=== PATIENT | male | born 1965 | race Caucasian/White ===

== ENCOUNTER 2018-05-13 18:53 | Inpatient (IN) | payer MEDICAID ==
[~2018-05-13] VITALS: Ht 170.2 cm; Wt 90.3 kg
[2018-05-13 19:00] VITALS: BP 164/85
--- NOTE | 2018-05-13 21:59 | NUR ---
PT TO ER BED 1
--- NOTE | 2018-05-13 22:00 | NUR ---
GLADIS SHANNONER WITH C/O SOB, COUGH X 5 DAYS, MID ABDOMINAL PAIN/CELLULITIS. ADMITTED HAS BEEN USING HEROIN. NO ACCESSORY MUSCLE USE, SPEAKS FULL SENCTENSES, CLEAR BL BS, SPO2 99% ON ROOM AIR. PT STATES TO LAST USED HEROIN YESTURDAY AROUND NOON. LOWER PITTING EDEMA IN BILATERAL EXTREMITIES. DENIES N/V/D; SKIN IS PINK/WARM/DRY; AAOX4 WITH EVEN AND STEADY GAIT; PATIENT STATES PAIN OF 0/10 AT THIS TIME; VSS; PATIENT POSITIONED FOR COMFORT; HOB ELEVATED; BEDRAILS UP X2; BED DOWN. ER MD MADE AWARE OF PT STATUS. HX; DENIES RX; DENIES
[2018-05-13] MEDS ORDERED: NACL 0.9% 1,000 ML IV SCH (22:14)
--- NOTE | 2018-05-13 22:25 | NUR ---
LAB AT BEDSIDE.
[2018-05-13] MEDS ORDERED: DEXT 5% / NACL 0.45% 1,000 ML IV SCH (22:39)
[2018-05-13] MEDS ORDERED: ONDANSETRON 4 MG/2 ML VIAL IM/IVP PRN (22:40)
[2018-05-13] MEDS ORDERED: HYDROcodone/APAP 5/325 MG 1 TAB TAB PO PRN (22:40)
[2018-05-13] MEDS ORDERED: ZOLPIDEM 5 MG TAB PO PRN (22:40)
[2018-05-13] MEDS ORDERED: DOCUSATE SODIUM 100 MG GELCAP PO PRN (22:40)
[2018-05-13] MEDS ORDERED: ACETAMINOPHEN 325 MG TAB PO PRN (22:40)
[2018-05-13] MEDS ORDERED: CLINDAMYCIN 900 MG in DEXTROSE 5% 100 ML IV ONE (22:45)
[2018-05-13 22:57] LABS: BASOPHILS # (AUTO) 0.1 K/uL (0.00-0.22); BASOPHILS % (AUTO) 1.1 % (0.0-2.0); EOSINOPHILS # (AUTO) 0.2 K/uL (0-0.4); EOSINOPHILS % (AUTO) 3.4 % (0.0-4.0); HEMATOCRIT 35.4 % (36-52); HEMOGLOBIN 11.5 g/dL (12.0-18.0); LYMPHOCYTES # (AUTO) 1.8 K/uL (2.0-11.5); LYMPHOCYTES % (AUTO) 26.2 % (20.5-51.1); MEAN CORPUSCULAR HEMOGLOBIN 30 pg (27-31); MEAN CORPUSCULAR HGB CONC 33 g/dL (33-37); MEAN CORPUSCULAR VOLUME 91.5 fL (80-94); MONOCYTES # (AUTO) 0.9 K/uL (0.8-1.0); MONOCYTES % (AUTO) 12.9 % (1.7-9.3); NEUTROPHILS # (AUTO) 3.9 K/uL (1.8-7.7); NEUTROPHILS % (AUTO) 56.4 % (42.2-75.2); PLATELET COUNT (AUTO) 100 K/uL (140-450); RED BLOOD CELL COUNT(AUTO) 3.87 MIL/uL (4.20-6.10); RED CELL DISTRIBUTION WIDTH 15.9 % (11.6-13.7)
[2018-05-13 23:11] LABS: ANION GAP 9.8 (8-16); CARBON DIOXIDE 28.7 mmol/L (21-32); CREATININE 0.7 mg/dL (0.7-1.3); POTASSIUM 3.5 mmol/L (3.5-5.1)
[2018-05-13 23:17] LABS: ALBUMIN 2.5 g/dL (3.4-5.0); TOTAL BILIRUBIN 2.5 mg/dL (0.0-1.0)
[2018-05-13] MEDS ORDERED: CLINDAMYCIN 900 MG/6 ML VIAL IV ONE (23:19)
[2018-05-13 23:24] LABS: PROTHROMBIN TIME 14.9 secs (10.8-13.4)
[2018-05-13 23:27] LABS: MAGNESIUM 1.5 mg/dL (1.8-2.4); PHOSPHORUS 3.2 mg/dL (2.5-4.9); THYROID STIMULATING HORMONE 1.71 uIU/mL (0.34-3.74)
[2018-05-13 23:55] VITALS: BP 130/74
--- NOTE | 2018-05-13 23:55 | NUR ---
Admited to Tele. Will go to room 111A. Belongings list completed. Report to Zana HOLLAND.
--- NOTE | 2018-05-13 23:55 | NUR ---
REPORT RECEIVED FROM ED NURSE AT BEDSIDE. PT IN STABLE CONDITION. AAOX4. INTRODUCED SELF TO PT. BOARD UPDATED. NO COMPLAINTS OF PAIN. NO SOB. AFEBRILE. IV SITE L WRIST 22G RUNNING D5 1/2NS@40ML/HR PATENT AND INTACT. SKIN WARM, DRY, AND INTACT BUT HAS MULTIPLE ABSCESSES ON THE BILATERAL LOWER ABDOMEN. PICTURES TAKEN AND IN CHART. BED LOCKED IN LOW POSITION. CALL PLUMMER WITHIN REACH. SAFETY PRECAUTIONS IN PLACE. ALL NEEDS MET AT THIS TIME.
[2018-05-14] VITALS: BP 130/70
[2018-05-14] MEDS ORDERED: FUROSEMIDE 40 MG/4 ML VIAL IVP ONE (00:40)
[2018-05-14] MEDS ORDERED: MAG SULF 2000 MG/WATER PREMIX 50 ML IV ONE (00:45)
--- NOTE | 2018-05-14 00:56 | NUR ---
LASIX GIVEN IVP. PT TOLERATED WELL. Addendum: 05/14/18 at 0120 by Zana Dunaway RN MAG KENNEDY AND RUNNING.
--- NOTE | 2018-05-14 02:20 | NUR ---
PT SLEEPING COMFORTABLY IN BED. NO S/S OF DISTRESS NOTED. DENIES PAIN. NO SOB. AFEBRILE. WILL CONTINUE TO MONITOR.
[2018-05-14 03:05] LABS: BARBITURATE, URINE NEGATIVE ng/ml (NEG <=200); BENZODIAZEPINE, URINE NEGATIVE ng/mL (NEG <=200); CANNABINOID, URINE NEGATIVE ng/mL (NEG <=50); COCAINE, URINE NEGATIVE ng/mL (NEG <=300); OPIATE, URINE POSITIVE ng/mL (NEG <=2000); PHENCYCLIDINE SCREEN,URINE NEGATIVE ng/mL (NEG <=25)
[2018-05-14] MEDS ORDERED: ALBUTEROL SULFATE/IPRATROPIU 3 ML SOL IH PRN (03:30)
[2018-05-14 03:46] LABS: APPEARANCE,URINE CLEAR (CLEAR); BILIRUBIN,URINE NEGATIVE (NEGATIVE); BLOOD, URINE NEGATIVE (NEGATIVE); COLOR,URINE YELLOW (YELLOW); LEUKOCYTE ESTERASE ,URINE NEGATIVE (NEGATIVE); NITRITE, URINE NEGATIVE (NEGATIVE); PH,URINE 6.5 (5.0-9.0); UGLUCOSE NEGATIVE (NEGATIVE)
[2018-05-14 04:00] VITALS: BP 107/63
[2018-05-14] MEDS: NACL 0.9% 1,000 ML IV SCH (04:15)
--- NOTE | 2018-05-14 04:17 | NUR ---
CLEOCIN HUNG AND RUNNING. PT TOLERATING WELL.
[2018-05-14] MEDS ORDERED: CLINDAMYCIN 600 MG/4 ML VIAL ONE (04:18)
[2018-05-14] MEDS ORDERED: CLINDAMYCIN 600 MG in DEXTROSE 5% 50 ML IV SCH (05:00)
[2018-05-14 06:27] LABS: BASOPHILS # (AUTO) 0.1 K/uL (0.00-0.22); BASOPHILS % (AUTO) 1.1 % (0.0-2.0); EOSINOPHILS # (AUTO) 0.3 K/uL (0-0.4); EOSINOPHILS % (AUTO) 5.4 % (0.0-4.0); HEMOGLOBIN 10.7 g/dL (12.0-18.0); LYMPHOCYTES # (AUTO) 1.5 K/uL (2.0-11.5); LYMPHOCYTES % (AUTO) 28.1 % (20.5-51.1); MEAN CORPUSCULAR HEMOGLOBIN 30 pg (27-31); MEAN CORPUSCULAR HGB CONC 33 g/dL (33-37); MONOCYTES # (AUTO) 0.8 K/uL (0.8-1.0); NEUTROPHILS # (AUTO) 2.6 K/uL (1.8-7.7); NEUTROPHILS % (AUTO) 49.4 % (42.2-75.2); PLATELET COUNT (AUTO) 85 K/uL (140-450); RED BLOOD CELL COUNT(AUTO) 3.51 MIL/uL (4.20-6.10); RED CELL DISTRIBUTION WIDTH 15.9 % (11.6-13.7); WHITE BLOOD COUNT (AUTO) 5.3 K/uL (4.8-10.8)
[2018-05-14 06:43] LABS: CREATININE 0.7 mg/dL (0.7-1.3)
[2018-05-14 06:49] LABS: ANION GAP 6.7 (8-16); CARBON DIOXIDE 30.5 mmol/L (21-32); MAGNESIUM 1.8 mg/dL (1.8-2.4); PHOSPHORUS 3.1 mg/dL (2.5-4.9); POTASSIUM 3.2 mmol/L (3.5-5.1)
[2018-05-14 06:53] LABS: CHOL/HDL RATIO 3.3 (1-4.5)
--- NOTE | 2018-05-14 07:05 | NUR ---
REPORT GIVEN TO AM NURSE AT BEDSIDE. PT IN STABLE CONDITION.
--- NOTE | 2018-05-14 07:10 | NUR ---
REPORT RECIEVED FROM YARN COMBER NURSE, PT SLEEPING QUIETLY IN NAD, AROUSES EASILY, RESP EVEN UNALBORED ON RA, SKIN WARM DRY COLOR WNL, POC REVIEWED, ALL SAFETY MEASURES IN PLACE, NO IMMEDIATE NEEDS AT THIS TIME, WILL CONTINUE TO MONITOR.
[2018-05-14] MEDS ORDERED: POTASSIUM CHLORIDE 10 MEQ TABER PO SCH (07:22)
[2018-05-14] MEDS: LORazepam 2 MG/ML VIAL IM/IVP PRN (07:47)
--- NOTE | 2018-05-14 07:50 | NUR ---
PT STATES "I'M WITHDRAWING" STATES FEELS ANXIOUS, ATIVAN GIVEN PER PRN ORDER.
[2018-05-14 08:00] VITALS: BP 113/71
--- NOTE | 2018-05-14 08:12 | NUR ---
PATIENT HAS BEEN SCREENED AND CATEGORIZED MODERATE NUTRITION RISK. PATIENT WILL BE SEEN WITHIN 3-5 DAYS OF ADMISSION. 05/16/18[address]
[2018-05-14] MEDS ORDERED: VANCOMYCIN PER PHARMACY MC PRN (09:10)
[2018-05-14] MEDS: VANCOMYCIN 1GM/DEXT 5% PREMIX 200 ML IV SCH ×2 (10:30→17:54)
--- NOTE | 2018-05-14 10:32 | NUR ---
SCHEDULED VANCO STARTED, IV SITE WNL, PT SLEEPING QUIETLY IN NNAD
--- NOTE | 2018-05-14 11:55 | NUR ---
PT SLEEPING QUIETLY IN NAD, AROUSES EASILY BY VOICE, DENIES PAIN OR DISCOMFORT, VITALS STABLE, SITTING UP NOW REQUESTING FOR FOOD, LUNCH TRAY ON THE FLOOR NOW, WILL PROVIDE LUNCH. DENIES OTHER NEEDS AT THIS TIME
[2018-05-14 12:00] VITALS: BP 133/78
[2018-05-14] MEDS: CLINDAMYCIN PHOS 600MG/D5W PM 50 ML IV SCH ×2 (12:52→21:56)
--- NOTE | 2018-05-14 12:55 | NUR ---
FLU SWAB COLLECTED.
--- NOTE | 2018-05-14 14:22 | NUR ---
DAUGHTER AT BEDSIDE, DR HERNÁNDEZ AT BEDSIDE, POC DISCUSSED. PT DENIES PAIN OR DISCOMFORT.
[2018-05-14 16:00] VITALS: BP 112/61
--- NOTE | 2018-05-14 16:15 | NUR ---
VITALS STABLE, DENIES PAIN OR DISCOMFORT, CALL BELLWITHIN REACH SIDE RAILSUP , WILL CONTINUE TO MONTIOR.
--- NOTE | 2018-05-14 18:01 | NUR ---
PT SITTING UP TALKING WITH FAMILY, DENIES PAIN OR DISCOMFORT, RESP EVEN UNLABORED, IVF INFUSING WELL, SITE WNL, ANTIBIOTIC STARTED, JUST FINISHED DINNER, KELLY 50% OF DINNER, DENIES ANY IMMEDIATE NEEDS, WILL CONTINUE TO MONTIOR.
--- NOTE | 2018-05-14 19:21 | NUR ---
REPORT GIVEN TO SALES AND CATERING COORDINATOR NURSE, PT IN STABLE CONDITION.
[2018-05-14 20:05] VITALS: BP 104/62
--- NOTE | 2018-05-14 20:10 | NUR ---
SEEN PT ASLEEP BUT EASILY AROUSABLE. INITIAL ASSESSMENT DONE. PT'S ABDOMINAL MARKINGS FROM INJECTION SITES REMAINS UNCHANGED. VITAL SIGNS CHECKED. TEMP=99.1. PT ENCOURAGED TO JUST USE THE TOP SHEET FOR NOW TO COOL DOWN HIS BODY. PT VERBALIZED UNDERSTANDING. BLANKET REMOVED. PT ENCOURAGED TO KEEP HIS LEFT ARM STRAIGHT MUCH HE CAN SO HIS IV ATB WILL INFUSED CONTINUOUSLY. PT DENIES ANY PAIN. SAFETY REINFORCED. CALL LIGHT W/IN REACH.
--- NOTE | 2018-05-14 21:55 | NUR ---
SEEN PT AWAKE. PT ASKING FOR SNACKS. WILL GIVE SANDWICH. IV CLINDAMYCIN GIVEN ORDERED. TEACHINGS PROVIDE. PT VERBALIZED UNDERSTANDING. PT USED HIS URINAL. URINAL EMPTIED W/ 450ML CLEAR, YELLOW URINE. PT KEPT COMFORTABLE.
[2018-05-15] VITALS (7 sets, daily range): BP systolic 98–118; BP diastolic 48–73
--- NOTE | 2018-05-15 00:20 | NUR ---
SEEN PT ASLEEP BUT EASILY AROUSABLE. VITAL SIGNS CHECKED. PT DENIES ANY PAIN. SAFETY ENSURED. CALL LIGHT W/IN REACH.
--- NOTE | 2018-05-15 01:40 | NUR ---
SPOKE TO MD RESIDENT REGARDING AM LABS. HE SAID TO DRAW AM LABS SEPARATE FROM VANCO TROUGH @ 0900. WILL NOTIFY LAB.
[2018-05-15] MEDS: VANCOMYCIN 1GM/DEXT 5% PREMIX 200 ML IV SCH ×3 (02:50→18:11)
[2018-05-15] MEDS: NACL 0.9% 1,000 ML IV SCH (03:50)
--- NOTE | 2018-05-15 04:20 | NUR ---
SEEN PT AWAKE WATCHING SOMETHING IN HIS CELLPHONE. VITAL SIGNS CHECKED. PT DENIES ANY PAIN OR SHORTNESS OF BREATH. PT'S IV KEEPS BEEPING. INSTRUCTED PT TO KEEP THE LEFT HAND ELEVATED OVER THE PILLOW. PT VERBALIZED UNDERSTANDING. WILL CONTINUE TO MONITOR.
[2018-05-15] MEDS: CLINDAMYCIN PHOS 600MG/D5W PM 50 ML IV SCH ×3 (05:50→20:04)
--- NOTE | 2018-05-15 05:50 | NUR ---
SEEN PT AWAKE. IV ATB GIVEN ORDERED W/ TEACHINGS. PT ASKING FOR HIS WITHDRAWAL MEDICATION. ASKED IF ITS ATIVAN, PT SAID "YES". WILL MEDICATE ORDERED.
[2018-05-15] MEDS: LORazepam 2 MG/ML VIAL IM/IVP PRN ×2 (05:58→18:11)
[2018-05-15 06:20] LABS: HEPATITIS A ANTIBODY IGM Negative (Negative); HEPATITIS B SURFACE ANTIBODY Non Reactive (.); HEPATITIS B SURFACE ANTIGEN Negative (Negative)
--- NOTE | 2018-05-15 07:10 | NUR ---
SUJATHA CHARGE NURSE CALLED AND SAID PT'S COUGHING OUT BLOOD. SEEN PT AWAKE IN BED. [place] W/ BLOOD SEEN AT BEDSIDE. PT SAID "ITS NOT COUGHED OUT, ITS FROM SNEEZING." PT SAID HE HAD EPISODE OF IT YESTERDAY BUT REALLY SMALL AMOUNT FROM SNEEZING TOO. PT DENIES SOB. WILL ENDORSE TO DAYSHIFT NURSE.
--- NOTE | 2018-05-15 07:25 | NUR ---
Received report from pm nurse Goetz. Pt resting in bed, awake, verbally responsive, no signs of distress. Call light within reach.
[2018-05-15 07:28] LABS: BASOPHILS % (AUTO) 1.1 % (0.0-2.0); EOSINOPHILS # (AUTO) 0.1 K/uL (0-0.4); EOSINOPHILS % (AUTO) 3.3 % (0.0-4.0); HEMATOCRIT 33.9 % (36-52); HEMOGLOBIN 11.1 g/dL (12.0-18.0); LYMPHOCYTES # (AUTO) 1.1 K/uL (2.0-11.5); LYMPHOCYTES % (AUTO) 25.3 % (20.5-51.1); MEAN CORPUSCULAR HEMOGLOBIN 30 pg (27-31); MEAN CORPUSCULAR HGB CONC 33 g/dL (33-37); MEAN CORPUSCULAR VOLUME 91.4 fL (80-94); MONOCYTES # (AUTO) 0.5 K/uL (0.8-1.0); MONOCYTES % (AUTO) 11.7 % (1.7-9.3); NEUTROPHILS # (AUTO) 2.6 K/uL (1.8-7.7); NEUTROPHILS % (AUTO) 58.6 % (42.2-75.2); PLATELET COUNT (AUTO) 93 K/uL (140-450); RED BLOOD CELL COUNT(AUTO) 3.71 MIL/uL (4.20-6.10); WHITE BLOOD COUNT (AUTO) 4.4 K/uL (4.8-10.8)
[2018-05-15 07:37] LABS: ANION GAP 8.1 (8-16); CARBON DIOXIDE 24.7 mmol/L (21-32); CREATININE 0.8 mg/dL (0.7-1.3); POTASSIUM 3.8 mmol/L (3.5-5.1)
[2018-05-15 07:48] LABS: PHOSPHORUS 3.2 mg/dL (2.5-4.9)
[2018-05-15 08:24] LABS: MAGNESIUM 1.5 mg/dL (1.8-2.4)
[2018-05-15 08:48] LABS: FOLIC ACID 3.5 ng/mL (>3.0)
[2018-05-15] MEDS ORDERED: MAG SULF 2000 MG/WATER PREMIX 50 ML IV SCH (10:00)
--- NOTE | 2018-05-15 10:12 | NUR ---
Mg-rider initiated at this time. Pt resting in bed, aaox4, no c/o discomfort, no signs of distress. Call light within reach.
--- NOTE | 2018-05-15 10:42 | NUR ---
Spoke to Evel[facility] pharmacist. Confirmed Vanco trough level. Per pharmacist, cont current vancomycin dose.
--- NOTE | 2018-05-15 10:53 | NUR ---
Mg-rider held at this time. IV flushed with 10ml NS. Started Vancomycin infusion. Pt awake, verbally responsive, respirations even & nonlabored, no c.o discomfort. Call light within reach.
--- NOTE | 2018-05-15 12:50 | NUR ---
Noted anterior right upper thigh indurated lesion with redness & tenderness (1.5 x 1.5 cm with 0.5cm elevation). Per pt, he uses his right upper thigh to inject heroin. Dr Peterson notified.
--- NOTE | 2018-05-15 13:05 | NUR ---
Vancomycin completed. Initiated clindamycin IV. Pt sitting up in bed, no signs of distress, no c/o discomfort. Call light within reach.
--- NOTE | 2018-05-15 13:45 | NUR ---
Clindamycin completed. Resumed Mg-rider infusion @ 25ml/hr. Pt sitting up in bed, 2 visitors at bedside. Pt interacting appropriately. Call light within reach.
--- NOTE | 2018-05-15 18:11 | NUR ---
Lorazepam admin: Lorazepam given for c/o generalized anxiety. Pt noted to be slightly restless. Reassurance provided. Call light within reach.
--- NOTE | 2018-05-15 19:11 | NUR ---
Pt resting in bed at this time, no c/o discomfort, respirations even & nonlabored. Call light within reach.
--- NOTE | 2018-05-15 19:29 | NUR ---
Report given to pm nurse Zulema.
--- NOTE | 2018-05-15 19:30 | NUR ---
RECEIVED FROM AM RN IN BED AWAKE AND ALERT. ABLE TO VERBALIZE NEEDS WELL. NO SOB. DENIES PAIN AT THIS TIME.CALL LIGHT WITH IN REACH AND ENCOURAGED TO CALL FOR ANY HELP OR ANY PAIN HE MIGHT HAVE. TELEMETRY MONITORING. DX. OF ABSCESS AND DEHYDRATION.
--- NOTE | 2018-05-15 20:40 | NUR ---
PT. REQUESTED FOR SLEEPING PILL. MEDICATED WITH AMBIEN 5 MG. P.O. PT. ABLE TO VERBALIZE NEEDS WELL. ON TELEMETRY MONITORING. CALL LIGHT WITH IN REACH.
[2018-05-15 20:56] LABS: HEPATITIS B CORE AB TOTAL POSITIVE (NEGATIVE)
[2018-05-15] MEDS: MORPHINE SULFATE 4 MG/ML SYR IVP PRN (23:32)
[2018-05-16] MEDS: VANCOMYCIN 1GM/DEXT 5% PREMIX 200 ML IV SCH (01:54)
--- NOTE | 2018-05-16 01:54 | NUR ---
SLEEPING WELL. VANCOMYCIN IVP INFUSING. NO RESTLESSNESS NOTED.
[2018-05-16] MEDS: LORazepam 2 MG/ML VIAL IM/IVP PRN (02:44)
--- NOTE | 2018-05-16 02:45 | NUR ---
PT. AWAKE AND REQUESTED FOR WITHDRAWAL MEDICINE"ATIVAN " "I FEEL SHAKY INSIDE" PT. ABLE TO VERBALIZE NEEDS WELL. SEEN AMBULATING TO RESTROOM INSIDE ROOM WITH OUT ANY ASSIST. MESSAGE CLERK AND RN WATCHING HIM AMBULATE . NO PAIN COMPLAINTS. MEDICATED WITH ATIVAN 1 MG IVP REQUESTED. IVF SITE INTACT AND NO INFILTRATION.
[2018-05-16] MEDS: NACL 0.9% 1,000 ML IV SCH (03:50)
[2018-05-16 04:16] VITALS: BP 110/62
[2018-05-16] MEDS: CLINDAMYCIN PHOS 600MG/D5W PM 50 ML IV SCH (05:10)
[2018-05-16] MEDS: MORPHINE SULFATE 4 MG/ML SYR IVP PRN (05:45)
--- NOTE | 2018-05-16 05:45 | NUR ---
PT. AWAKE AT THIS TIME AND REQUESTED FOR PAIN RELIEVER. MEDICATED WITH MORPHINE 1 MG. IVP. ABLE TO VERBALIZE NEEDS WELL. NO SOB. TELEMETRY MONITORING.
[2018-05-16 06:52] LABS: BASOPHILS # (AUTO) 0.1 K/uL (0.00-0.22); BASOPHILS % (AUTO) 1.1 % (0.0-2.0); EOSINOPHILS # (AUTO) 0.1 K/uL (0-0.4); EOSINOPHILS % (AUTO) 1.9 % (0.0-4.0); HEMATOCRIT 34.9 % (36-52); HEMOGLOBIN 11.4 g/dL (12.0-18.0); LYMPHOCYTES # (AUTO) 1.2 K/uL (2.0-11.5); LYMPHOCYTES % (AUTO) 23.2 % (20.5-51.1); MEAN CORPUSCULAR HEMOGLOBIN 30 pg (27-31); MEAN CORPUSCULAR HGB CONC 33 g/dL (33-37); MEAN CORPUSCULAR VOLUME 91.1 fL (80-94); MONOCYTES # (AUTO) 0.5 K/uL (0.8-1.0); NEUTROPHILS # (AUTO) 3.1 K/uL (1.8-7.7); NEUTROPHILS % (AUTO) 62.8 % (42.2-75.2); PLATELET COUNT (AUTO) 100 K/uL (140-450); RED BLOOD CELL COUNT(AUTO) 3.83 MIL/uL (4.20-6.10); RED CELL DISTRIBUTION WIDTH 15.8 % (11.6-13.7)
--- NOTE | 2018-05-16 07:26 | NUR ---
ENDORSED TO THE NEXT RN FOR CONTINUITY OF CARE.
--- NOTE | 2018-05-16 07:27 | NUR ---
Received report from pm nurse Zulema. Pt asleep in bed, respirations even & nonlabored, FLACC 0. Call light within reach.
[2018-05-16 08:00] VITALS: BP 117/76
[2018-05-16 08:21] LABS: MAGNESIUM 1.5 mg/dL (1.8-2.4); PHOSPHORUS 3.8 mg/dL (2.5-4.9)
[2018-05-16 08:22] LABS: CARBON DIOXIDE 23.7 mmol/L (21-32); CREATININE 0.8 mg/dL (0.7-1.3); POTASSIUM 3.7 mmol/L (3.5-5.1)
[2018-05-16] MEDS ORDERED: SULF-58 PO (08:48)
[2018-05-16] MEDS ORDERED: CLIN300C2 PO (08:52)
[2018-05-16] MEDS ORDERED: MAG SULF 2000 MG/WATER PREMIX 100 ML IV SCH (09:00)
[2018-05-16] MEDS ORDERED: MAGNESIUM OXIDE 400 MG TAB PO SCH (10:15)
--- NOTE | 2018-05-16 10:30 | NUR ---
Written & discharge instructions provided to pt. Pt verbalized understanding & agree with discharge plans. Addendum: 05/16/18 at 1119 by Belen Zavala RN Addendum: pt states he will contact his daughter to pick him up today.
--- NOTE | 2018-05-16 10:40 | NUR ---
Per pt, family unable to pick him up today. Requests to take bus to home in [place]. Charge nurse notified.
--- NOTE | 2018-05-16 10:50 | NUR ---
Pt discharged to home at this time. Pt stable, no signs of distress. Amb off unit with steady gait. Bus pass provided to pt. All belongings with pt upon departure. Name band removed.
== END 2018-05-16 10:50 | disposition home or self-care (01) | DRG 383 ==
LOC: MED 18:53 → MTU 22:39
PROVIDERS: ADMIT General Practice; ATTEND General Practice
DX: L03.311 Cellulitis of abdominal wall (principal); E43 Unspecified severe protein-calorie malnutrition; D68.9 Coagulation defect, unspecified; D69.6 Thrombocytopenia, unspecified; E83.42 Hypomagnesemia; K70.9 Alcoholic liver disease, unspecified; L02.211 Cutaneous abscess of abdominal wall; E86.0 Dehydration; E66.9 Obesity, unspecified; D64.9 Anemia, unspecified; F17.210 Nicotine dependence, cigarettes, uncomplicated; F19.10 Other psychoactive substance abuse, uncomplicated; F10.10 Alcohol abuse, uncomplicated; K82.4 Cholesterolosis of gallbladder; Z68.31 Body mass index [BMI] 31.0-31.9, adult; Z83.3 Family history of diabetes mellitus
CPT/HCPCS: 36415; 71045; 76705; 76881; 80048; 80053; 80202; 80305; 81003; 82150; 82607; 82728; 82746; 82948; 83036; 83540; 83605; 83690; 83735; 83880; 84100; 84443; 84484; 85025; 85045; 85610; 85730; 86704; 86706; 86708; 86709; 86803; 87040; 87070; 87081; 87086; 87340; 87804; 93005; 93970; 96365; 99285; J1940; J2060; J2270; J2405; J3370; J3475; J3490; J7030; J7060; Q0092

== ENCOUNTER 2018-07-20 17:40 | Emergency (ER) | payer SELFPAY ==
[~2018-07-20] VITALS: Ht 170.2 cm; Wt 87.1 kg
[~2018-07-20 17:40] MED LIST: CLIN300C2 PO
[2018-07-20 17:48] VITALS: BP 159/102
--- NOTE | 2018-07-20 20:20 | NUR ---
PT TAKEN TO BED 10
--- NOTE | 2018-07-20 20:25 | NUR ---
PT PRESENTED TO THE ER WITH C/O BILATERAL LOWER EXTREMITY EDEMA. EDEMA PRESENT FOR 1 MONTH. EDEMA IS +4 PITTING, CAP REFILL <3 SECS, EDMEMA PRESENT FROM CALF TO ANKLE, NO DISCOLORATION NOTED, PT ABLE TO AMBULATE, 2/10 PAIN. PT RESTING IN BED COMFORTABLY, ER MD MADE AWARE, SAFETY PRECAUTIONS IN PLACE. WILL CONTINUE TO MONITOR.
--- NOTE | 2018-07-20 20:27 | NUR ---
Dr. Garg evaluating patient at bedside.
[2018-07-20 21:50] LABS: BASOPHILS % (AUTO) 0.8 % (0.0-2.0); EOSINOPHILS # (AUTO) 0.3 K/uL (0-0.4); HEMATOCRIT 30.8 % (36-52); HEMOGLOBIN 10.4 g/dL (12.0-18.0); LYMPHOCYTES # (AUTO) 1.7 K/uL (2.0-11.5); LYMPHOCYTES % (AUTO) 34.9 % (20.5-51.1); MEAN CORPUSCULAR HEMOGLOBIN 31 pg (27-31); MEAN CORPUSCULAR HGB CONC 34 g/dL (33-37); MEAN CORPUSCULAR VOLUME 91.3 fL (80-94); MONOCYTES # (AUTO) 0.5 K/uL (0.8-1.0); MONOCYTES % (AUTO) 10.7 % (1.7-9.3); NEUTROPHILS # (AUTO) 2.3 K/uL (1.8-7.7); NEUTROPHILS % (AUTO) 47.6 % (42.2-75.2); PLATELET COUNT (AUTO) 89 K/uL (140-450); RED BLOOD CELL COUNT(AUTO) 3.37 MIL/uL (4.20-6.10); RED CELL DISTRIBUTION WIDTH 17.4 % (11.6-13.7); WHITE BLOOD COUNT (AUTO) 4.9 K/uL (4.8-10.8)
[2018-07-20 22:30] LABS: ANION GAP 12.8 (8-16); CARBON DIOXIDE 23.5 mmol/L (21-32); CREATININE 0.8 mg/dL (0.7-1.3); POTASSIUM 3.3 mmol/L (3.5-5.1); TOTAL BILIRUBIN 3.3 mg/dL (0.0-1.0)
[2018-07-20 22:33] LABS: APPEARANCE,URINE CLOUDY (CLEAR); BILIRUBIN,URINE 2+ (NEGATIVE); BLOOD, URINE NEGATIVE (NEGATIVE); COLOR,URINE DARK YELLOW (YELLOW); LEUKOCYTE ESTERASE ,URINE NEGATIVE (NEGATIVE); NITRITE, URINE NEGATIVE (NEGATIVE); PH,URINE 6.5 (5.0-9.0); UGLUCOSE NEGATIVE (NEGATIVE)
[2018-07-20 22:53] LABS: RBC,URINE 0-5 /HPF (0-5); WBC,URINE 0-5 /HPF (0-5)
--- NOTE | 2018-07-20 22:55 | NUR ---
PT RESTING COMFORTABLY, NO SIGNS OF DISCOMFORT. WILL CONTINUE TO MONITOR
--- NOTE | 2018-07-20 23:55 | NUR ---
PHLEB AT BEDSIDE FOR REPEAT TROPONIN DRAW
--- NOTE | 2018-07-21 00:57 | NUR ---
TAY FELTON AT BEDSIDE.
[2018-07-21 01:04] VITALS: BP 129/77
--- NOTE | 2018-07-21 01:04 | NUR ---
Patient discharged with v/s stable. Written and verbal after care instructions given and explained. Patient alert, oriented and verbalized understanding of instructions. Ambulatory with steady gait. All questions addressed prior to discharge. ID band removed. Patient advised to follow up with PMD. Rx of Lasix and Potassium Chloride given. Patient educated on indication of medication including possible reaction and side effects. Opportunity to ask questions provided and answered.
== END 2018-07-21 01:04 | disposition home or self-care (01) ==
LOC: MED 17:40
DX: R60.0 Localized edema (principal); Z79.899 Other long term (current) drug therapy
CPT/HCPCS: 36415; 71045; 80053; 81001; 83880; 84484; 85025; 99284; Q0092

== ENCOUNTER 2018-09-23 10:24 | Emergency (ER) | payer MEDICAID ==
[~2018-09-23] VITALS: Ht 170.2 cm; Wt 96.3 kg
[2018-09-23 10:26] VITALS: BP 134/77
--- NOTE | 2018-09-23 10:30 | NUR ---
53 Y MALE BIB FAMILY C/O BILATERAL LOWER EXTREMITY EDEMA X2 DAYS. 3+ EDEMA IN BOTH LEGS. DIMINISHED PEDAL PULSES BILATERALLY. PT REPORTS WALKING STAIRS YESTERDAY AND WAKING UP THIS MORNING WITH INCREASED EDEMA. PT DENIES SOB, CP, N/V OR PAIN AT THIS TIME. PT SAW PCP AND IS WAITING FOR RESULTS OF BLOOD WORK. PT STATES HE HAS AN UMBILICAL HERNIA. PT TACHY AT 105. AA0X4. BED IS DOWN, LOCKED, BED RAIL X 1, ERMD TO SEE PT. MEDHX:DENIES RX:DENIES
--- NOTE | 2018-09-23 12:00 | NUR ---
DR MARCH BEDSIDE
--- NOTE | 2018-09-23 12:17 | NUR ---
PT SLEEPING IN BED. AROUSBALE TO NAME. LIGHTS TURNED OFF FOR PT COMFORT.
[2018-09-23] MEDS ORDERED: FUROSEMIDE 100 MG/10 ML VIAL IVP ONE (12:20)
[2018-09-23] MEDS ORDERED: CAPTOPRIL 12.5 MG TAB PO ONE (12:20)
--- NOTE | 2018-09-23 12:32 | NUR ---
x-ray and lab at bedside
--- NOTE | 2018-09-23 12:49 | NUR ---
PT USING URINAL AT BEDSIDE
--- NOTE | 2018-09-23 12:54 | NUR ---
PT UNABLE TO GIVE URINE AT THIS TIME
[2018-09-23 13:15] LABS: EOSINOPHILS # (AUTO) 0.2 K/uL (0-0.4); HEMATOCRIT 31.1 % (36-52); HEMOGLOBIN 10.4 g/dL (12.0-18.0); LYMPHOCYTES # (AUTO) 1.3 K/uL (2.0-11.5); LYMPHOCYTES % (AUTO) 32.1 % (20.5-51.1); MEAN CORPUSCULAR HEMOGLOBIN 31 pg (27-31); MEAN CORPUSCULAR HGB CONC 33 g/dL (33-37); MEAN CORPUSCULAR VOLUME 94.3 fL (80-94); MONOCYTES # (AUTO) 0.6 K/uL (0.8-1.0); MONOCYTES % (AUTO) 14.4 % (1.7-9.3); NEUTROPHILS # (AUTO) 1.9 K/uL (1.8-7.7); NEUTROPHILS % (AUTO) 47.5 % (42.2-75.2); RED CELL DISTRIBUTION WIDTH 18.3 % (11.6-13.7); WHITE BLOOD COUNT (AUTO) 3.9 K/uL (4.8-10.8)
[2018-09-23 13:16] LABS: ANION GAP 8.8 (8-16); CARBON DIOXIDE 25.6 mmol/L (21-32); CREATININE 0.8 mg/dL (0.7-1.3); POTASSIUM 4.4 mmol/L (3.5-5.1)
[2018-09-23 13:22] LABS: ALBUMIN 1.9 g/dL (3.4-5.0); TOTAL BILIRUBIN 4.1 mg/dL (0.0-1.0)
[2018-09-23 13:23] LABS: PLATELET COUNT (AUTO) 88 K/uL (140-450)
--- NOTE | 2018-09-23 14:38 | NUR ---
PT USED URINAL FOR URINE SAMPLE
[2018-09-23 15:13] LABS: AMYLASE 38 U/L (25-115); LIPASE 115 U/L (73-393)
[2018-09-23 15:19] LABS: APPEARANCE,URINE CLEAR (CLEAR); BILIRUBIN,URINE NEGATIVE (NEGATIVE); BLOOD, URINE NEGATIVE (NEGATIVE); COLOR,URINE YELLOW (YELLOW); LEUKOCYTE ESTERASE ,URINE NEGATIVE (NEGATIVE); NITRITE, URINE NEGATIVE (NEGATIVE); PH,URINE 6.5 (5.0-9.0); UGLUCOSE NEGATIVE (NEGATIVE)
--- NOTE | 2018-09-23 15:40 | NUR ---
VSS AT THIS TIME. PT AROUSABLE TO NAME. PT SLEEPING.
--- NOTE | 2018-09-23 15:54 | NUR ---
US AT BEDSIDE
--- NOTE | 2018-09-23 16:13 | NUR ---
US FINISHED AT BEDSIDE
--- NOTE | 2018-09-23 16:22 | NUR ---
PT STATES HE IS HUNGRY, REGULAR DIET ORDERED PER DR MARCH
[2018-09-23 17:42] VITALS: BP 140/86
--- NOTE | 2018-09-23 17:42 | NUR ---
Patient discharged with v/s stable. Written and verbal after care instructions given and explained. Patient alert, oriented and verbalized understanding of instructions. Ambulatory with steady gait. All questions addressed prior to discharge. ID band removed. Patient advised to follow up with PMD. Rx of LASIX, ALDACTONE given. Patient educated on indication of medication including possible reaction and side effects. Opportunity to ask questions provided and answered. PT GIVEN COPY OF ULTRASOUND RESULTS.
== END 2018-09-23 17:42 | disposition home or self-care (01) ==
LOC: MED 10:24
DX: R60.0 Localized edema (principal); R79.9 Abnormal finding of blood chemistry, unspecified
CPT/HCPCS: 36415; 71045; 80053; 81003; 82150; 83690; 83735; 83880; 84484; 85025; 85379; 93005; 93970; 96374; 99284; J1940; Q0092